=== PATIENT | female | born 1995 | race Caucasian/White ===

== ENCOUNTER 2016-08-15 19:03 | Emergency (ER) | payer SELFPAY ==
[~2016-08-15] VITALS: Ht 160 cm; Wt 75.3 kg
[2016-08-15] MEDS ORDERED: SODIUM CHLORIDE 0.9% 1,000ML IVBOLUS ONE (19:30)
[2016-08-15] MEDS ORDERED: MAALOX/HYOSCYAMINE/LIDOCAINE 45 ML BOTTLE PO ONE (19:30)
[2016-08-15] MEDS ORDERED: SODIUM CHLORIDE FLUSH 10ML SYR IVF ONE (19:30)
[2016-08-15] MEDS ORDERED: FAMOTIDINE 20 MG/2 ML IVP ONE (19:30)
[2016-08-15] MEDS ORDERED: ONDANSETRON 2MG/ML, 2ML IVPush ONE (19:30)
[2016-08-15 19:58] LABS: ASPARTATE AMINO TRANSFERASE 16 U/L (15-37); BLOOD UREA NITROGEN 12 mg/dL (7-18)
[2016-08-15] MEDS ORDERED: MAALOX/HYOSCYAMINE/LIDOCAINE 45 ML BOTTLE ONE (20:18)
[2016-08-15] MEDS ORDERED: FAMOTIDINE 20 MG/2 ML ONE (20:18)
[2016-08-15] MEDS ORDERED: ONDANSETRON 2MG/ML, 2ML ONE (20:18)
[2016-08-15 20:53] VITALS: BP 133/87
== END 2016-08-15 20:57 | disposition home or self-care (01) ==
LOC: ED 20:51
DX: K29.00 Acute gastritis without bleeding (principal)
CPT/HCPCS: 36415; 76700; 80053; 83690; 84703; 85025; 99285